=== PATIENT | female | born 1970 | race Caucasian/White ===

== ENCOUNTER 2023-08-20 21:59 | Emergency (ER) | payer BC ==
[2023-08-20 22:08] VITALS: BP 142/73; PULSE 105; RESP 18; TEMP 97.9; BMI 34.9
[2023-08-20] MEDS ORDERED: KETOROLAC TROMETHAMINE 30 MG/1 ML VIAL IM ONE (22:52)
[2023-08-20] MEDS ORDERED: LIDOCAINE VISCOUS 2% ORAL/TOP 15 ML UNIT-DOSE CUP MM ONE (22:52)
[2023-08-20] MEDS ORDERED: KETOROLAC TROMETHAMINE 30 MG/1 ML VIAL ONE (22:56)
[2023-08-20] MEDS ORDERED: AZITHROMYCIN 500 MG TABLET ONE (23:39)
[2023-08-20] MEDS ORDERED: AZITHROMYCIN 250 MG TABLET PO ONE (23:52)
[2023-08-21] MEDS ORDERED: AZITHROMYCIN 500 MG TABLET PO SCH (10:00)
== END 2023-08-20 23:54 | disposition home or self-care (01) ==
LOC: JERFT 21:59
PROC: 3E0233Z Introduction of Anti-inflammatory into Muscle, Percutaneous Approach (ICD-10-PCS; principal; 2023-08-20)
DX: R05.1 Acute cough (principal); R07.0 Pain in throat; J02.8 Acute pharyngitis due to other specified organisms; R13.10 Dysphagia, unspecified; R09.81 Nasal congestion; R50.9 Fever, unspecified; R53.83 Other fatigue; Z20.822 Contact with and (suspected) exposure to COVID-19
CPT/HCPCS: 0241U-QW; 87651; 99284-25

== ENCOUNTER 2023-10-21 15:33 | Day surgery (SDC) | payer BC ==
[2023-10-21] MEDS ORDERED: FAMOTIDINE 20 MG/50 ML IVPB 20 MG/50 ML MG IVPB ONE (16:30)
[2023-10-21] MEDS ORDERED: ONDANSETRON 4 MG/2 ML VIAL IVPUSH ONE (16:30)
[2023-10-21] MEDS ORDERED: ACETAMINOPHEN 1000 MG/100 ML BAG IVPB ONE (16:30)
[2023-10-21] MEDS ORDERED: SODIUM CHLORIDE 1,000 ML IV STA (16:30)
[2023-10-21] MEDS ORDERED: ONDANSETRON 4 MG/2 ML VIAL ONE (17:39)
[2023-10-21] MEDS ORDERED: ACETAMINOPHEN INJECTION 100 ML IVPB ONE (17:39)
[2023-10-21] MEDS ORDERED: FAMOTIDINE 10 MG/ML VIAL IVPB ONE (17:40)
[2023-10-21 18:13] LABS: HEMATOCRIT 41.5 % (32.4-45.2); HEMOGLOBIN 13.4 GM/dL (10.7-15.3); MCH 28.9 pg (25.7-33.7); MCHC 32.2 g/dl (32.0-36.0); MEAN CELL VOLUME 89.8 fl (80-96); MEAN PLT VOLUME 7.9 fl (7.5-11.1); PLATELET COUNT 246 10^3/uL (134-434); RBC 4.62 M/mm3 (3.60-5.2); RDW 14.5 % (11.6-15.6); WHITE BLOOD COUNT 12.9 K/mm3 (4.0-10.0)
[2023-10-21 18:22] LABS: INR 1.05 (0.83-1.09); PROTHROMBIN TIME (PATIENT) 12.2 SEC (9.7-13.0)
[2023-10-21 18:24] LABS: ACTIVATED PTT 31.8 SECONDS (25.2-36.5)
[2023-10-21 18:32] LABS: POTASSIUM 3.7 mmol/L (3.5-5.1)
[2023-10-21 18:34] LABS: CALCIUM 8.9 mg/dL (8.5-10.1)
[2023-10-21 18:35] LABS: ALBUMIN 3.9 g/dl (3.4-5.0); BLOOD UREA NITROGEN 13.4 mg/dL (7-18)
[2023-10-21 18:39] LABS: BILIRUBIN,TOTAL 0.4 mg/dL (0.2-1); CREATININE 0.6 mg/dL (0.55-1.3)
[2023-10-21 18:57] LABS: ANISOCYTOSIS 2+; MACROCYTOSIS 1+
[2023-10-21] MEDS ORDERED: PIPERACILLIN/TAZOB 3.375 GM 3.375 GM in DEXTROSE 5%-WATER - 50 ML IVPB ONE (20:34)
[2023-10-21] MEDS ORDERED: PIPERACILLIN/TAZOB 3.375 GM 3.375 GM/50 ML BAG IVPB ONE (20:47)
[2023-10-21 21:17] LABS: URINE APPEARANCE CLEAR; URINE BILIRUBIN NEGATIVE (NEGATIVE); URINE COLOR YELLOW; URINE GLUCOSE (UA) NEGATIVE (NEGATIVE); URINE KETONE TRACE (NEGATIVE); URINE LEUK ESTERASE NEGATIVE (NEGATIVE); URINE NITRITE NEGATIVE (NEGATIVE); URINE PROTEIN NEGATIVE (NEGATIVE); URINE UROBILINOGEN 0.2 mg/dL (0.2-1.0)
[2023-10-21] MEDS ORDERED: ONDANSETRON 4 MG/2 ML VIAL IVPUSH PRN (21:27)
[2023-10-21] MEDS ORDERED: SODIUM CHLORIDE 1,000 ML IV SCH (21:30)
[2023-10-21] MEDS ORDERED: ACETAMINOPHEN 1000 MG/100 ML BAG IVPB PRN (21:48)
[2023-10-22] MEDS ORDERED: PIPERACILLIN/TAZOB 3.375 GM 3.375 GM in DEXTROSE 5%-WATER - 50 ML IVPB SCH ×2 (02:00→10:30)
[2023-10-22] MEDS: PIPERACILLIN/TAZOB 3.375 GM 3.375 GM in DEXTROSE 5%-WATER - 50 ML IVPB SCH ×2 (02:51→16:56)
[2023-10-22 07:01] LABS: HEMATOCRIT 35.9 % (32.4-45.2); HEMOGLOBIN 11.9 GM/dL (10.7-15.3); MCH 29.5 pg (25.7-33.7); MCHC 33.2 g/dl (32.0-36.0); MEAN PLT VOLUME 8.2 fl (7.5-11.1); PLATELET COUNT 219 10^3/uL (134-434); RBC 4.03 M/mm3 (3.60-5.2); RDW 14.3 % (11.6-15.6)
[2023-10-22 07:08] LABS: POTASSIUM 4.2 mmol/L (3.5-5.1)
[2023-10-22 07:11] LABS: BLOOD UREA NITROGEN 11.4 mg/dL (7-18)
[2023-10-22 07:14] LABS: CREATININE 0.6 mg/dL (0.55-1.3)
[2023-10-22 10:46] VITALS: BMI 34.4
[2023-10-22] MEDS ORDERED: ROCURONIUM BROMIDE 50 MG/5 ML SYRINGE ONE ×2 (12:16→13:44)
[2023-10-22] MEDS ORDERED: BUPIVACAINE HCL/PF 0.25% (2.5MG/ML) 10 ML VIAL ONE ×2 (12:16→12:53)
[2023-10-22] MEDS ORDERED: SUGAMMADEX SODIUM 200 MG/2 ML VIAL ONE (12:16)
[2023-10-22] MEDS ORDERED: MIDAZOLAM HCL 2 MG/2 ML SINGLE DOSE VIAL ONE (12:16)
[2023-10-22] MEDS ORDERED: FENTANYL CITRATE/PF 50 MCG/ML VIAL ONE ×3 (12:16→14:47)
[2023-10-22] MEDS ORDERED: PROPOFOL 20 ML ONE (12:16)
[2023-10-22] MEDS ORDERED: ONDANSETRON 4 MG/2 ML VIAL ONE (12:17)
[2023-10-22] MEDS ORDERED: DEXAMETHASONE SOD PHOSPHATE 4 MG/1 ML VIAL ONE ×2 (12:17→13:22)
[2023-10-22] MEDS ORDERED: KETOROLAC TROMETHAMINE 30 MG/1 ML VIAL ONE (12:17)
[2023-10-22] MEDS ORDERED: LIDOCAINE HCL/PF 2% SDV 5ML VIAL ONE (12:17)
[2023-10-22] MEDS ORDERED: oxyCODONE HCL 5 MG TABLET PO PRN ×6 (12:36→15:22)
[2023-10-22] MEDS ORDERED: PROMETHAZINE HCL 25 MG/1 ML VIAL IVPB PRN ×2 (12:36→15:22)
[2023-10-22] MEDS ORDERED: LACTATED RINGERS SOLUTION 1,000 ML IV SCH (12:45)
[2023-10-22] MEDS ORDERED: PIPERACILLIN/TAZOBACTAM 3.375 GM VIAL IVPB ONE ×2 (13:08→13:25)
[2023-10-22] MEDS ORDERED: HEPARIN NA (PORCINE) 5,000 UNITS/ML 1ML VIAL ONE (13:31)
[2023-10-22] MEDS ORDERED: BUPIVACAINE HCL/PF 0.25% (2.5MG/ML) 10 ML VIAL IJ ONE (13:55)
[2023-10-22] MEDS ORDERED: SEVOFLURANE 250 ML BTL ONE (14:56)
[2023-10-22] MEDS ORDERED: SODIUM CHLORIDE 1,000 ML IV SCH (15:22)
[2023-10-22] MEDS: LACTATED RINGERS SOLUTION 1,000 ML IV SCH ×2 (16:41→22:31)
[2023-10-22 17:28] VITALS: RESP 20
[2023-10-22] MEDS: ACETAMINOPHEN 325 MG TABLET (FP) PO SCH ×2 (17:52→22:10)
[2023-10-23] MEDS: ACETAMINOPHEN 325 MG TABLET (FP) PO SCH ×2 (03:19→10:33)
[2023-10-23] MEDS: LACTATED RINGERS SOLUTION 1,000 ML IV SCH (07:27)
[2023-10-23 12:40] VITALS: BP 128/59; PULSE 92; TEMP 98.3
== END 2023-10-23 13:20 | disposition home or self-care (01) ==
LOC: JER 15:33 → JERBED 21:08 → UNDOADMIN 21:08 → JERBED 10-22 10:20 → J8W 10-22 10:20 → JASUSAT 10-22 13:51 → SUATTDRO 10-22 13:51 → J8W 10-22 14:15 → JASUSAT 10-23 13:20
PROVIDERS: ATTEND Nurse Practitioner Acute Care
PROC: 0DTJ4ZZ Resection of Appendix, Percutaneous Endoscopic Approach (ICD-10-PCS; principal; 2023-10-22 13:00)
DX: K35.80 Unspecified acute appendicitis (principal)
CPT/HCPCS: 44970; S2900; 0241U-QW; 36415; 74177-TC; 76705-TC; 80048; 80053; 81003; 83690; 84484; 84703; 85025; 85027; 85610; 85730; 86850; 86900; 86901; 87086; 88304-TC; 93005; 93010; 94760; 99285-25; J1644; Q9967